=== PATIENT | female | born 1950 | race Caucasian/White ===

== ENCOUNTER 2018-07-19 06:58 | Inpatient (IN) | payer MEDICARE ==
--- NOTE | 2018-07-06 16:24 | HP ---
AMENDED REPORT NOW INCLUDES DESIGNATED COSIGNER HISTORY AND PHYSICAL: DATE OF ADMISSION/SURGERY: 07/19/18 DATE OF OFFICE VISIT: 07/06/18 SURGEON: Leny Pressley MD * (DICTATED BY JAIDA GAONA) PROCEDURE: Left total hip arthroplasty. CHIEF COMPLAINT: Left hip pain. HISTORY OF PRESENT ILLNESS: Ms. Carlson is a 68-year-old female with end-stage osteoarthritis of the left hip. She has failed conservative treatment and elected to proceed with a left total hip arthroplasty, which is scheduled for . PAST MEDICAL HISTORY: Chronic fatigue syndrome. PAST SURGICAL HISTORY: Left knee ACL reconstruction. CURRENT MEDICATIONS: Aleve as needed. ALLERGIES: None. FAMILY HISTORY: Lung cancer, coronary artery disease, and liver disease. SOCIAL HISTORY: She is a 68-year-old female. She lives with her friend. She does not smoke or use drugs. She uses occasional alcohol. REVIEW OF SYSTEMS: A complete 14-point review of systems was reviewed with the patient, was all negative and noncontributory. She denies history of DVT, PE, hepatitis, HIV, or anesthesia problems. PHYSICAL EXAMINATION GENERAL: She is well developed, well nourished, in no acute distress. VITAL SIGNS: She stands 5 feet 3 inches tall, weighs 149 pounds, her blood pressure is 116/76, and heart rate is 64. HEENT: Normocephalic and atraumatic. NECK: Supple. No palpable lymph nodes. PULMONARY: Clear to auscultation bilaterally. CARDIO: Regular rate and rhythm. Strong S1 and S2. ABDOMEN: Soft, nontender, and nondistended. MUSCULOSKELETAL: Left lower extremity, the skin is intact. There are no open wounds or abrasions. She walks with an antalgic-type gait favoring her left hip. She has decreased internal and external rotation of the left hip. She has a 2+ dorsalis pedis pulse, intact sensation to her lower extremity. Muscle group strengths are intact at 5/5. ASSESSMENT AND PLAN: Mrs. Carlson is a 68-year-old female with end-stage osteoarthritis of the left hip. She has failed conservative treatment and elected to proceed with a left total hip arthroplasty, which is scheduled for with Dr. Pressley. Dr. Pressley discussed the risks and the benefits of the surgery at today's visit and all of her questions were answered. She will follow up with Dr. Pressley 2 weeks after the surgery. JAIDA GAONA [id number]/CPS #: [id number] MTDD
[~2018-07-19 06:58] MED LIST: Buffered Lidocaine 0.9% SYRIN* 5 ML/SYR SYRINGE INTRADERM ONE; Famotidine IV* 10 MG/ML 2 ML (20 mg) IV ONE; Gabapentin CAP(*) 300 MG PO ONE
--- OUTSIDE RECORDS SUMMARY | 2018-07-19 07:05 | XMS REPORT ---
:1950 External Reference #:[id number] Author Organization [facility] Address [address] [place] [address] [place] [address] Phone [phone] Care Team Providers Name Role Phone Maulik Helton DO Primary Care Physician Unavailable Payers Type Date Identification Numbers Payment Provider Subscriber Medicare Primary Effective: Policy Number: Medicare Evan Davila 2003 [id number] PayID: [id number] [address] [place] [address] [place] Policy Number: [id number] [facility] Evan Davila PayID: [id number] [address] [place] [address] Problems Date Description Provider Status Onset: 04/02/2009 Chronic fatigue syndrome Matthias Christensen Active Anny,FACP Onset: 06/03/2018 Localized, primary osteoarthritis Leny Pressley M.D. Active of the pelvic region and thigh Family History Date Family Member(s) Problem(s) Comments Father due to Liver Disease () - ? alcohol related Father due to CHF () Mother Osteoporosis Mother Thyroid Disease First Sister Thyroid Disease Paternal Grandmother due to Cancer () Maternal Grandmother due to Cancer, Colon () Social History Type Date Description Comments Marital Status Significant Other Lives With unmarried partner Occupation Disabled General no children Cigarette Use Never Smoked Cigarettes ETOH Use Occasionally consumes wine ETOH Use Occasionally consumes alcohol ETOH Use consumes 3-4 glasses per week Recreational Drug Use Denies Drug Use Smoking Patient has never smoked Exercise Type/Frequency Does not exercise Allergies, Adverse Reactions, Alerts Date Description Reaction Status Severity Comments 04/02/2009 NKDA active 10/17/2013 NKDA active Medications Medication Date Status Form Strength Qnty SIG Indications Ordering Provider Breg Cooling Active 1units use q2 M16.12 Leny Pad For Hip - 018 hours as Anny Pressley Ice Cube Pad needed for left hip pain s/p ltha CBD Salve And Active Unknown Tincture 000 Aleve Active Capsules 220mg 1-2 as Unknown 000 needed Manns Choice-3 Hx Unknown 000 - 018 Antioxidant Hx Unknown 000 - 018 Vital Signs Date Vital Result Comment 07/06/2018 Height 63 inches 5'3" Weight 149.00 lb Heart Rate 64 /min BP Systolic 116 mmHg BP Diastolic 76 mmHg BMI (Body Mass Index) 26.4 kg/m2 06/03/2018 Height 63 inches 5'3" Weight 144.00 lb Heart Rate 72 /min BP Systolic 114 mmHg BP Diastolic 64 mmHg BMI (Body Mass Index) 25.5 kg/m2 10/30/2015 Height 64 inches 5'4" Weight 160.00 lb Heart Rate 60 /min BP Systolic Sitting 114 mmHg BP Diastolic Sitting 62 mmHg Respiratory Rate 16 /min Pain Level 5 BMI (Body Mass Index) 27.5 kg/m2 10/17/2013 Height 64 inches 5'4" Weight 160.00 lb Heart Rate 77 /min BP Systolic 107 mmHg BP Diastolic 72 mmHg BMI (Body Mass Index) 27.5 kg/m2 04/02/2009 Height 65.25 inches 5'5.25" Weight 174.00 lb Heart Rate 68 /min BP Systolic Sitting 116 mmHg BP Diastolic Sitting 82 mmHg BMI (Body Mass Index) 28.7 kg/m2 Results Test Date Test Result H/L Range Note CBC Auto Diff 07/06/2018 White Blood Count 6.3 10^3/uL 3.5-10.8 Red Blood Count 4.36 10^6/uL 4.00-5.40 Hemoglobin 14.1 g/dL 12.0-16.0 Hematocrit 41 % 35-47 Mean Corpuscular Volume 95 fL 80-97 Mean Corpuscular Hemoglobin 32 pg High 27-31 Mean Corpuscular HGB Conc 34 g/dL 31-36 Red Cell Distribution Width 14 % 10.5-15 Platelet Count 236 10^3/uL 150-450 Mean Platelet Volume 8.2 um3 7.4-10.4 Abs Neutrophils 2.8 10^3/uL 1.5-7.7 Abs Lymphocytes 2.5 10^3/uL 1.0-4.8 Abs Monocytes 0.5 10^3/uL 0-0.8 Abs Eosinophils 0.4 10^3/uL 0-0.6 Abs Basophils 0.1 10^3/uL 0-0.2 Abs Nucleated RBC 0 10^3/uL Granulocyte % 44.9 % 38-83 Lymphocyte % 39.7 % 25-47 Monocyte % 8.3 % High 0-7 Eosinophil % 5.8 % 0-6 Basophil % 1.3 % 0-2 Nucleated Red Blood Cells % 0.1 Urinalysis Profile 07/06/2018 Urine Color Yellow Urine Appearance Clear Urine Specific Henderson 1.011 1.010-1.030 Urine pH 5.0 5-9 Urine Urobilinogen Negative Negative Urine Ketones Negative Negative Urine Protein Negative Negative Urine Leukocytes Negative Negative Urine Blood 1+ Negative Urine Nitrite Negative Negative Urine Bilirubin Negative Negative Urine Glucose Negative Negative Urine White Blood Cell Absent Absent Urine Red Blood Cell Trace(0-2/hpf) Absent Urine Bacteria Absent Absent Urine Squamous Epithelial Cell Present Absent Inr/Protime 07/06/2018 Inr 0.89 0.77-1.02 Laboratory test finding 07/06/2018 Partial Thrombo Time 30.4 seconds 26.0 -36.3 PTT Comp Metabolic Panel 07/06/2018 Sodium 138 mmol/L 135-145 Potassium 4.1 mmol/L 3.5-5.0 Chloride 103 mmol/L 101-111 Co2 Carbon Dioxide 29 mmol/L 22-32 Anion Gap 6 mmol/L 2-11 Glucose 94 mg/dL 70-100 Blood Urea Nitrogen 15 mg/dL 6-24 Creatinine 0.90 mg/dL 0.51-0.95 BUN/Creatinine Ratio 16.7 8-20 Calcium 9.6 mg/dL 8.6-10.3 Total Protein 7.3 g/dL 6.4-8.9 Albumin 4.3 g/dL 3.2-5.2 Globulin 3.0 g/dL 2-4 Albumin/Globulin Ratio 1.4 1-3 Total Bilirubin 0.50 mg/dL 0.2-1.0 Alkaline Phosphatase 90 U/L 34-104 Alt 25 U/L 7-52 Ast 25 U/L 13-39 Egfr Non- 62.3 >60 Egfr 75.3 >60 1 Type & Screen 07/06/2018 Patient Blood Type A Positive Antibody Screen NEGATIVE Urine Culture And 07/06/2018 Urine Culture SEE RESULT BELOW 2 Sensitivities Laboratory test finding 12/13/2017 Non-Internet Developer Interface SEE RESULT BELOW 3 Order Comp Metabolic Panel 10/25/2017 Sodium 140 mmol/L 133-145 Potassium 4.2 mmol/L 3.5-5.0 Chloride 105 mmol/L 101-111 Co2 Carbon Dioxide 28 mmol/L 22-32 Anion Gap 7 mmol/L 2-11 Glucose 104 mg/dL High 70-100 Blood Urea Nitrogen 13 mg/dL 6-24 Creatinine 0.87 mg/dL 0.51-0.95 BUN/Creatinine Ratio 14.9 8-20 Calcium 9.8 mg/dL 8.6-10.3 Total Protein 7.0 g/dL 6.4-8.9 Albumin 4.3 g/dL 3.2-5.2 Globulin 2.7 g/dL 2-4 Albumin/Globulin Ratio 1.6 1-3 Total Bilirubin 0.50 mg/dL 0.2-1.0 Alkaline Phosphatase 68 U/L 34-104 Alt 17 U/L 7-52 Ast 21 U/L 13-39 Egfr Non- 64.9 >60 Egfr 83.5 >60 4 CBC With Electronic Diff 04/09/2009 White Blood Count 5.5 CUMM 4.8-10.8 5 Red Cell Count 4.41 CUMM 4.2-5.4 5 Hemoglobin 14.3 g/dL 12.0-16.0 5 Hematocrit 42 % 35-47 5 Mean Corpuscular Volume 94 um3 79-97 5 Mean Corpuscular Hemoglob 32 pg High 27-31 5 Mean Corpuscular HGB Cone 34 g/dL 32-36 5 Redcell Distribution WDTH 14 % 10.5-15 5 Platelet Count 217 CUMM 150-450 5 Mean Platelet Volume 8.6 um3 7.4-10.4 5 Gran % 43.8 % 38-83 5 Lymph % 43.3 % 25-47 5 Mononuclear % 8.0 % 1-9 5 Eosinophil % 4.4 % 0-6 5 Basophil % 0.5 % 0-2 5 Abs Lymphs 2.4 1.0-4.8 5 Abs Mononuclear 0.4 0-0.8 5 Absolute Neutrophil Count 2.4 1.5-7.7 5 Abs Eosinophils 0.2 0-0.6 5 Abs Basophils 0 0-0.2 5 Comp Metabolic Panel 04/09/2009 Sodium 133 mmol/L Low 135-145 5 Potassium 4.4 mmol/L 3.5-5.0 5 Chloride 101 mmol/L 101-111 5 Co2 (Carbon Dioxide) 25.0 mmol/L 22-32 5 Anion Gap 7.0 mmol/L 2-11 5, 6 Glucose 78 mg/dL 70-100 5, 7 BUN 15 mg/dL 6-24 5 Creatinine 0.90 mg/dL 0.50-1.40 5 One Over Creatinine 1.10 5 BUN/Creatinine Ratio 16.7 8-20 5 Calcium 9.4 mg/dL 8.1-9.9 5, 8 Total Protein 7.0 GM/DL 6.2-8.1 5 Albumin 3.9 GM/DL 3.6-5.4 5 Globulin 3.1 GM/DL 2-4 5 Albumin/Globulin Ratio 1.3 1-3 5 Bilirubin Total 0.8 mg/dL 0.4-1.5 5, 9 Alkaline Phosphatase 73 U/L 30-110 5 Alt (SGPT) 30 U/L 14-54 5 Ast (Sgot) 28 U/L 12-42 5 eGFR Non- 68.1 > 60 5 eGFR 82.4 > 60 5, 10 Lipid Profile (Trig/Chol/HDL) 04/09/2009 Triglyceride 121 mg/dL 40-200 5 Cholesterol 256 mg/dL High Less Than 200 5, 11 High Density Lipoprotein 61 mg/dL High 40-60 5, 12 Cholesterol/HDL Ratio 4.20 AVERAGE 1-4.44 5 Low Density Lipoprotein 171 mg/dL High Less Than 100 5, 13 Laboratory test finding 04/09/2009 TSH 3.04 MIU/ML 0.34-5.60 5 Thyroxine Free 0.84 NG/ML 0.61-1.24 5, 14 1 Because ethnic data is not always readily available, this report includes an eGFR for both -Americans and non- Americans. The National Kidney Disease Education Program (NKDEP) does not endorse the use of the MDRD equation for patients that are not between the ages of 18 and 70, are , have extremes of body size, muscle mass, or nutritional status, or are non- or non-. According to the National Kidney Foundation, irrespective of diagnosis, the stage of the disease is based on the level of kidney function: Stage Description GFR(mL/min/1.73 m(2)) 1 Kidney damage with normal or decreased GFR 90 2 Kidney damage with mild decrease in GFR 60-89 3 Moderate decrease in GFR 30-59 4 Severe decrease in GFR 15-29 5 Kidney failure <15 (or dialysis) 2 SEE RESULT BELOW Name: EVAN DAVILA : [address]: Leny Pressley MD Acct: [id number] Unit: [id number] AGE: 68 Location: [facility] Re07/06/18 SEX: F Status: REG REF SPEC: [id number] [place]: 07/06/[address] [facility] [address]: Leny Pressley MD REQ: [id number] RECD: 07/06/183377 STATUS: COMP _ SOURCE: URINE SPDESC: ORDERED: Urine Culture QUERIES: Urine Source: Clean Catch Procedure Result Reported Site Urine Culture Final 07/07/18- 1334 ML No Growth (<1,000 CFU/mL) * ML - Main Lab . END OF REPORT DEPARTMENT OF PATHOLOGY, [address] [place] [address] Ryland Estevez M.D. Director [facility] # [id number] 3 SEE RESULT BELOW Name: EVAN DAVILA : [address]: Adair Fuentes MD Acct: [id number] Unit: [id number] AGE: 67 Location: LAB Re12/13/17 SEX: F Status: REG REF SPEC: [id number] [place]: 12/13/17-[address] [facility] [address]: Adair Fuentes MD REQ: [id number] RECD: 12/13/17 STATUS: RICHARD PURDY DR: Ryland Helton DO _ ORDERED: FNA INTERP RPT, FNA BY PALP, LEVEL 4, CYTO ADEQ-1ST P THIS IS A CORRECTED REPORT 12/14/17-1325 Corrected Report FINAL DIAGNOSIS Thigh, left posterior mass, fine needle aspiration by palpation: -- Benign- Mature adipose tissue with intimately associated muscle compatible with intramuscular lipoma. See comment. The aspirate smears and formalin fixed cell block demonstrate ample fragments of benign mature adipose tissue with associated benign skeletal muscle fragments. No abnormal vascular elements, cytologic atypia, lipoblasts, mitotic activity or necrosis are seen. 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 These findings are compatible with the clinical exam. Despite aggressive attempts to acquire adequate material for MDM 2 amplification by FISH, due to low nuclear density in this lesion as well as specimen requirements this test could not be completed. Management of this lesion should be based on clinical and imaging findings. The procedure was explained to and understood by the patient. Signed consent was obtained and a time out procedure was CONTINUED ON NEXT PAGE DEPARTMENT OF PATHOLOGY, [address] [place] [address] Ryland Estevez M.D. Director [facility] # [id number] RUN DATE: 12/22/17 [facility] LAB LIVE PAGE 2 Patient: EVAN DAVILA [id number] (Continued) SPECIMEN COMMENTS (Continued) performed at the bedside to verify patient identity and biopsy site. Fine needle aspiration biopsy was performed times 2 with a 23 gauge needle on approximately 8 cm left posterior thigh intramuscular mass. Adequacy was assessed by fast stain technique. The procedure was tolerated well without complications. A cell block was prepared in the evaluation of this specimen. Smears and cell block reveal similar findings. A. THIGH LEFT - LEFT POSERIOR THY MASS FINE NEEDLE ASPIRATION BY PALPATION CLINICAL HISTORY 8 cm left posterior thigh, intra-muscular soft mass. IMMEDIATE INTERPRETATION Pass 1,and 2-adequate GROSS DESCRIPTION Fine needle aspiration by palpation x 2 passes with 1 Alcohol fixed slide(s) , and needle rinse in formalin for cell block. SPECIAL STUDIES MDM2 FISH has been performed at [facility], [place], [place]. The testing reveals: Test Result Flag Unit RefValue MDM2 (12q15) Amp, FISH, Ts Interpretation See Comment FISH studies were not possible because of an insufficient amount of tissue present. If possible, please provide another specimen. 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 Director [facility] # [id number] RUN DATE: 12/22/17 [facility] LAB LIVE PAGE 3 Patient: EVAN DAVILA [id number] (Continued) SPECIAL STUDIES (Continued) SPECIAL STUDIES (Continued) Tissue ID [id number] Released By See Comment RESULT: Bill Story M.D. Test Performed by: [address] [address] Signed (signature on file) Ryland Estevez MD 1542 END OF REPORT DEPARTMENT OF PATHOLOGY, [address] [place] [address] Ryland Estevez M.D. Director [facility] # [id number] 4 Because ethnic data is not always readily available, this report includes an eGFR for both -Americans and non- Americans. The National Kidney Disease Education Program (NKDEP) does not endorse the use of the MDRD equation for patients that are not between the ages of 18 and 70, are , have extremes of body size, muscle mass, or nutritional status, or are non- or non-. According to the National Kidney Foundation, irrespective of diagnosis, the stage of the disease is based on the level of kidney function: Stage Description GFR(mL/min/1.73 m(2)) 1 Kidney damage with normal or decreased GFR 90 2 Kidney damage with mild decrease in GFR 60-89 3 Moderate decrease in GFR 30-59 4 Severe decrease in GFR 15-29 5 Kidney failure <15 (or dialysis) 5 FASTING PATIENT MAY HAVE RESULTS PER DOCTOR'S AUTHORIZATION. Questions regarding this report should be directed to your doctor. 6 Anion gap measurement may be of limited value in the presence of any alkalosis, especially in a combined acid base disorder. . 7 Note change in reference range as of 05/03/08. The change was based on recommendations from the [place] [employer]. 8 Please note change in reference range effective 08 . 9 A metabolite of Naproxen, O-desmethylnaproxen, has been shown to interfere with the [place] method for measuring total bilirubin. Samples from patients who have taken Naproxen have shown spurious elevation in total bilirubin levels. 10 Because ethnic data is not always readily available, this report includes an eGFR for both -Americans and non- Americans. The National Kidney Disease Education Program (NKDEP) does not endorse the use of the MDRD equation for patients that are not between the ages of 18 and 70, are , have extremes of body size, muscle mass, or nutritional status, or are non- or non-. According to the National Kidney Foundation, irrespective of diagnosis, the stage of the disease is based on the level of kidney function: Stage Description GFR(mL/min/1.73 m(2)) 1 Kidney damage with normal or decreased GFR 90 2 Kidney damage with mild decrease in GFR 60-89 3 Moderate decrease in GFR 30-59 4 Severe decrease in GFR 15-29 5 Kidney failure <15 (or dialysis) 11 CHOLESTEROL INTERPRETATION: Desirable: Less than 200 MG/DL Borderline-High Risk: 200-239 MG/DL High-Risk: 240 MG/DL and over 12 HDL INTERPRETATION: Undesirable: High Risk: Less than 40 MG/DL Desirable: Low Risk: Greater than 60 MG/DL 13 LDL INTERPRETATION: Low Risk Optimal Level: LDL Less than 100 MG/DL Near or Above Optimal: LDL 100-129 MG/DL Borderline High Risk: LDL 130-159 MG/DL High Risk: LDL 160-189 MG/DL Very High Risk: LDL Greater than 189 MG/DL 14 PLEASE NOTE NEW REFERENCE RANGES. Procedures Description No Information Encounters Type Date Location Provider CPT E/M Dx Office Visit 06/03/2018 [facility] Pressley M.D. 47230 M16.12 1:00p [facility]AA[facility]rienne M25.552 Office Visit 10/30/2015 10:30a [facility] Raul Renee M.D. 21403 M16.12 [facility] Office Visit 10/17/2013 1:30p [facility] David Cosme [address]32[address] 715.15 Of C.M.ADanilo Ybarra Office Visit 04/02/2009 9:20a DO Not Use Marketing Liaison AT [facility], [address] 780.71 Hoosicktessa Mccormick,FAC 780.79 V76.51 V76.10 Plan of Care Future Appointment(s):07/19/2018 9:30 am - JOAQUIM Parekh at [facility]07/19/2018 9:30 am - Junior Luevano PA-C at [facility]07/29/2018 10:30 am - Leny Pressley M.D. at [facility]07/19/2018 9:30 am - Leny Pressley M.D. at [facility]07/06/2018 - Leny Pressley M.D.M16.12 Unilateral primary osteoarthritis, left hipNew Medication:Breg Cooling Pad For Hip - Ice Cube PadFollow up:Follow up: 10-14 days vsgumzT78.552 Pain in left hip
--- OUTSIDE RECORDS SUMMARY | 2018-07-19 07:05 | XMS REPORT ---
:1950 External Reference #:[id number] Author Organization [employer] Address [address] [facility] [address] [place] [address] Phone [phone] Care Team Providers Name Role Phone Maulik Helton DO Primary Care Physician Unavailable Payers Type Date Identification Numbers Payment Provider Subscriber Medicare Primary Effective: Policy Number: Medicare Evan Davila 2003 [id number] PayID: [id number] [address] [place] [address] [employer] Part B Policy Number: [id number] [facility] Evan Davila PayID: [id number] [address] [place] [address] Problems Date Description Provider Status Onset: 04/02/2009 [...] Capsules 220mg 1-2 as Unknown 000 needed [place]-3 Hx Unknown 000 - 018 Antioxidant Hx [...] Test Date Test Result H/L Range Note Laboratory test 12/13/2017 Non-Structural Test Engineer Interface SEE RESULT BELOW 1 finding Order Comp Metabolic Panel 10/25/2017 Sodium 140 [...] Egfr Non- 64.9 >60 Egfr 83.5 >60 2 CBC With Electronic Diff 04/09/2009 White Blood Count 5.5 CUMM 4.8-10.8 3 Red Cell Count 4.41 CUMM 4.2-5.4 3 Hemoglobin 14.3 g/dL 12.0-16.0 3 Hematocrit 42 % 35-47 3 Mean Corpuscular Volume 94 um3 79-97 3 Mean Corpuscular Hemoglob 32 pg High 27-31 3 Mean Corpuscular HGB Cone 34 g/dL 32-36 3 Redcell Distribution WDTH 14 % 10.5-15 3 Platelet Count 217 CUMM 150-450 3 Mean Platelet Volume 8.6 um3 7.4-10.4 3 Gran % 43.8 % 38-83 3 Lymph % 43.3 % 25-47 3 Mononuclear % 8.0 % 1-9 3 Eosinophil % 4.4 % 0-6 3 Basophil % 0.5 % 0-2 3 Abs Lymphs 2.4 1.0-4.8 3 Abs Mononuclear 0.4 0-0.8 3 Absolute Neutrophil Count 2.4 1.5-7.7 3 Abs Eosinophils 0.2 0-0.6 3 Abs Basophils 0 0-0.2 3 Comp Metabolic Panel 04/09/2009 Sodium 133 mmol/L Low 135-145 3 Potassium 4.4 mmol/L 3.5-5.0 3 Chloride 101 mmol/L 101-111 3 Co2 (Carbon Dioxide) 25.0 mmol/L 22-32 3 Anion Gap 7.0 mmol/L 2-11 3, 4 Glucose 78 mg/dL 70-100 3, 5 BUN 15 mg/dL 6-24 3 Creatinine 0.90 mg/dL 0.50-1.40 3 One Over Creatinine 1.10 3 BUN/Creatinine Ratio 16.7 8-20 3 Calcium 9.4 mg/dL 8.1-9.9 3, 6 Total Protein 7.0 GM/DL 6.2-8.1 3 Albumin 3.9 GM/DL 3.6-5.4 3 Globulin 3.1 GM/DL 2-4 3 Albumin/Globulin Ratio 1.3 1-3 3 Bilirubin Total 0.8 mg/dL 0.4-1.5 3, 7 Alkaline Phosphatase 73 U/L 30-110 3 Alt (SGPT) 30 U/L 14-54 3 Ast (Sgot) 28 U/L 12-42 3 eGFR Non- 68.1 > 60 3 eGFR 82.4 > 60 3, 8 Lipid Profile (Trig/Chol/HDL) 04/09/2009 Triglyceride 121 mg/dL 40-200 3 Cholesterol 256 mg/dL High Less Than 200 3, 9 High Density Lipoprotein 61 mg/dL High 40-60 3, 10 Cholesterol/HDL Ratio 4.20 AVERAGE 1-4.44 3 Low Density Lipoprotein 171 mg/dL High Less Than 100 3, 11 Laboratory test finding 04/09/2009 TSH 3.04 MIU/ML 0.34-5.60 3 Thyroxine Free 0.84 NG/ML 0.61-1.24 3, 12 1 SEE RESULT BELOW Name: EVAN DAVILA : [address]: Adair Fuentes MD Acct: [id number] Unit: [id number] AGE: 67 Location: LAB Re12/13/17 SEX: F Status: REG REF SPEC: [id number] AUGUSTO: 12/13/17-0 [facility] DR: Adair Fuentes MD REQ: [id number] RECD: 12/13/17 STATUS: RICHARD PURDY DR: Ryland Helton DO _ ORDERED: FNA INTERP RPT, FNA BY PALP, LEVEL 4, CYTO ADEQ-1ST P THIS IS A CORRECTED REPORT 12/14/17 Corrected Report FINAL DIAGNOSIS Thigh, left posterior [...] CONTINUED ON NEXT PAGE DEPARTMENT OF PATHOLOGY, [address] [place] [address] Ryland Estevez M.D. Director [facility] # [id number] RUN DATE: 12/22/17 [facility] LAB LIVE PAGE 2 Patient: EVAN DAVILA [id number] (Continued) SPECIMEN COMMENTS (Continued) performed at the [...] STUDIES MDM2 FISH has been performed at [facility], [place], [place]. The testing reveals: Test Result Flag Unit RefValue MDM2 (12q15) Amp, FISH, Ts Interpretation See Comment FISH studies were not possible because of an insufficient amount of tissue present. If possible, please provide another specimen. 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 Director [facility] # [id number] RUN DATE: 12/22/17 [facility] LAB LIVE PAGE 3 Patient: EVAN DAVILA [id number] (Continued) SPECIAL STUDIES (Continued) SPECIAL STUDIES (Continued) Tissue ID [id number] Released By See Comment RESULT: Bill Story M.D. Test Performed by: [address] [address] Signed (signature on file) Ryland Estevez MD 1542 END OF REPORT DEPARTMENT OF PATHOLOGY, [address] [place] [address] Ryland Estevez M.D. Director [facility] # [id number] 2 Because ethnic data is not always readily [...] 15-29 5 Kidney failure <15 (or dialysis) 3 FASTING PATIENT MAY HAVE RESULTS PER DOCTOR'S AUTHORIZATION. Questions regarding this report should be directed to your doctor. 4 Anion gap measurement may be of limited value in the presence of any alkalosis, especially in a combined acid base disorder. . 5 Note change in reference range as of 05/03/08. The change was based on recommendations from the [place] Diabetes [employer]. 6 Please note change in reference range effective 08 . 7 A metabolite of Naproxen, O-desmethylnaproxen, has been shown to interfere with the Jendrassik-Deal method for measuring total bilirubin. Samples from patients who have taken Naproxen have shown spurious elevation in total bilirubin levels. 8 Because ethnic data is not always readily [...] 15-29 5 Kidney failure <15 (or dialysis) 9 CHOLESTEROL INTERPRETATION: Desirable: Less than 200 MG/DL Borderline-High Risk: 200-239 MG/DL High-Risk: 240 MG/DL and over 10 HDL INTERPRETATION: Undesirable: High Risk: Less than 40 MG/DL Desirable: Low Risk: Greater than 60 MG/DL 11 LDL INTERPRETATION: Low Risk Optimal Level: LDL Less than 100 MG/DL Near or Above Optimal: LDL 100-129 MG/DL Borderline High Risk: LDL 130-159 MG/DL High Risk: LDL 160-189 MG/DL Very High Risk: LDL Greater than 189 MG/DL 12 PLEASE NOTE NEW REFERENCE RANGES. Procedures Description No Information Encounters Type Date Location Provider CPT E/M Dx Office Visit 06/03/2018 [facility] M.D. 85042 M16.12 1:00p Raymundo M25.552 Office Visit 10/30/2015 10:30a [facility] Raul Renee M.D. 02622 M16.12 Of C.M.Sydni Office Visit 10/17/2013 1:30p [facility] David Cosme 43500 715.15 Of C.M.ADanilo Ybarra Office Visit 04/02/2009 9:20a DO Not Use [facility] [address] 780.71 Radha Mccormick,[facility] 780.79 V76.51 V76.10 Plan of Care Future Appointment(s):07/29/2018 10:30 am - Leny Preslsey M.D. at [facility]07/19/2018 11:30 am - Leny Pressley M.D. at [facility]07/06/2018 - Leny Pressley M.D.M16.12 Unilateral primary osteoarthritis, left hipNew Medication:Breg Cooling Pad For Hip - Ice Cube PadFollow up:Follow up: 10-14 days ttwijmU70.552 Pain in left hip
--- OUTSIDE RECORDS SUMMARY | 2018-07-19 07:05 | XMS REPORT ---
:1950 External Reference #:[id number] Author Organization [employer] Address [address] [place] [address] [place] [address] Phone [phone] Care Team Providers Name Role Phone Maulik Helton DO Primary Care Physician Unavailable Payers Type Date Identification Numbers Payment Provider Subscriber Medicare Primary Effective: Policy Number: Medicare Evan Davila 2003 [id number] PayID: [id number] [address] [place] [address] [employer] Part B Policy Number: [id number] [facility] Evan Davila PayID: [id number] [address] [place] [address] Problems Date Description Provider Status Onset: 04/02/2009 [...] Capsules 220mg 1-2 as Unknown 000 needed [place]-3 Hx Unknown 000 - 018 Antioxidant Hx [...] Color Yellow Urine Appearance Clear Urine Specific [place] 1.011 1.010-1.030 Urine pH 5.0 5-9 Urine [...] BELOW 2 Sensitivities Laboratory test finding 12/13/2017 Non-Esthetician Makeup Artist Interface SEE RESULT BELOW 3 Order Comp [...] [address]: Leny Pressley MD Acct: [id number] Unit: [id number] AGE: 68 Location: [facility] Re07/06/18 SEX: F Status: REG REF SPEC: [id number] AUGUSTO: 07/06/[address] [facility] [address]: Leny Pressley MD REQ: [id number] RECD: 07/06/188809 STATUS: COMP _ SOURCE: URINE SPDESC: ORDERED: Urine Culture QUERIES: Urine Source: Clean Catch Procedure Result Reported Site Urine Culture Final 07/07/18- 1334 ML No Growth (<1,000 CFU/mL) * ML - Main Lab . END OF REPORT DEPARTMENT OF PATHOLOGY, [address] [place] [address] Ryland Estevez M.D. Director [facility] # [id number] 3 SEE RESULT BELOW Name: EVAN DAVILA : [address]: Adair Fuentes MD Acct: [id number] Unit: [id number] AGE: 67 Location: LAB Re12/13/17 SEX: F Status: REG REF SPEC: [id number] AUGUSTO: 12/13/17-1510 [facility] [address]: Adair Fuentes MD REQ: [id number] RECD: 12/13/17 STATUS: RICHARD PURDY DR: Ryland [...] CONTINUED ON NEXT PAGE DEPARTMENT OF PATHOLOGY, [address] [place] [address] Ryland Estevez M.D. Director [facility] # [id number] RUN DATE: 12/22/17 [facility] LAB LIVE PAGE 2 Patient: EVAN DAVILA [id number] (Continued) SPECIMEN COMMENTS (Continued) performed at the [...] STUDIES MDM2 FISH has been performed at [facility], [place], [place]. The testing reveals: Test Result Flag Unit RefValue MDM2 (12q15) Amp, FISH, Ts Interpretation See Comment FISH studies were not possible because of an insufficient amount of tissue present. If possible, please provide another specimen. 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 Director [facility] # [id number] RUN DATE: 12/22/17 [facility] LAB LIVE PAGE 3 Patient: EVAN DAVILA [id number] (Continued) SPECIAL STUDIES (Continued) SPECIAL STUDIES (Continued) Tissue ID [id number] Released By See Comment RESULT: Bill Story M.D. Test Performed by: [address] [address] Signed (signature on file) Ryland Estevez MD 1542 END OF REPORT DEPARTMENT OF PATHOLOGY, [address] [place] [address] Ryland Estevez M.D. Director [facility] # [id number] 4 Because ethnic data is not always [...] change was based on recommendations from the [place] [employer]. 8 Please note change in reference range effective 08 . 9 A metabolite of Naproxen, O-desmethylnaproxen, has been shown to interfere with the Jendrassik-Statham method for measuring total bilirubin. Samples from [...] 06/03/2018 [facility] M.D. 20267 M16.12 1:00p C.MEmy M25.552 Office Visit 10/30/2015 10:30a [facility] Raul Renee M.D. 38725 M16.12 Of C.M.AAdrienne Office Visit 10/17/2013 1:30p [facility] David Cosme [address] 715.15 Of C.M.ADanilo Ybarra Office Visit 04/02/2009 9:20a DO Not Use Behavioral Health Counselor AT Matthias Christensen, [address] 780.71 Hesperiatessa Mccormick,FAC 780.79 V76.51 V76.10 Plan of Care Future Appointment(s):07/29/2018 10:30 am - Leny Pressley M.D. at [facility]07/19/2018 11:30 am - Leny Pressley M.D. at [facility]07/06/2018 - Leny Pressley M.D.M16.12 Unilateral primary osteoarthritis, left hipNew Medication:Breg Cooling Pad For Hip - Ice Cube PadFollow up:Follow up: 10-14 days wnvgarZ69.552 Pain in left hip
[2018-07-19] MEDS ORDERED: Famotidine IV* 10 MG/ML 2 ML (20 mg) ONE (07:16)
[2018-07-19] MEDS ORDERED: ceFAZolin 2 GM PREMIX in ORs 2 GM/50 ML BAG IVPB ONE (07:16)
[2018-07-19] MEDS ORDERED: Gabapentin CAP(*) 300 MG ONE (07:16)
[2018-07-19] MEDS ORDERED: Midazolam* 1 MG/ML 5 ML VIAL (5 MG) ONE (08:55)
[2018-07-19] MEDS ORDERED: fentaNYL* 50 MCG/ML 2 ML VIAL (100 MCG VIAL) ONE (08:55)
[2018-07-19] MEDS ORDERED: KETAMINE HCL* 50 MG/ML 10 ML VIAL ONE (08:55)
[2018-07-19] MEDS ORDERED: Propofol* 10 MG/ML 20 ML BTL IV PUSH ONE (09:05)
[2018-07-19] MEDS ORDERED: DiMENhydriNATE IV* 50 MG/ML VIAL ONE (09:05)
[2018-07-19] MEDS ORDERED: Ondansetron INJ* 2 MG/ML VIAL ONE (09:05)
[2018-07-19] MEDS ORDERED: Ketorolac INJ* 30 MG/ML 1 ML VIAL ONE (09:05)
[2018-07-19] MEDS ORDERED: Dexamethasone IV* 4 MG/ML 1 ML (4 MG) ONE (09:05)
[2018-07-19] MEDS ORDERED: EPHEDrine (Pressors)* 50 MG/ML VIAL ONE (09:05)
[2018-07-19] MEDS ORDERED: Glycopyrrolate IV* 0.2 MG/ML 1 ML VIAL ONE (09:05)
[2018-07-19] MEDS ORDERED: Bupivacaine 0.5% SDV PF* 30ML VIAL ONE (09:11)
[2018-07-19] MEDS ORDERED: Phenylephrine IV* 40 MCG/ML 10 ML SYRINGE ONE (09:11)
[2018-07-19] MEDS ORDERED: Acetaminophen IV 1GM/100ML * 1,000 MG/100 ML VIAL IVPB ONE (10:52)
[2018-07-19] MEDS ORDERED: Naloxone* 0.4 MG/ML 1 ML VIAL IV PRN (10:52)
[2018-07-19] MEDS ORDERED: HYDROmorphone INJ1* 1 MG/ML SYRINGE IV PRN (10:52)
[2018-07-19] MEDS ORDERED: DiMENhydriNATE IV* 50 MG/ML VIAL IV PUSH PRN (10:52)
[2018-07-19] MEDS ORDERED: Gabapentin CAP(*) 100 MG PO ONE (10:53)
[2018-07-19] MEDS ORDERED: Acetaminophen IV 1GM/100ML * 100 ML ONE (11:56)
[2018-07-19] MEDS ORDERED: Gabapentin CAP(*) 100 MG ONE (11:56)
[2018-07-19] MEDS ORDERED: ROPIVACAINE 5 MG/ML 30 ML BTL (0.5%) ONE (12:00)
[2018-07-19] MEDS ORDERED: Bisacodyl SUPP* 10 MG SUPP PR PRN (12:21)
[2018-07-19] MEDS ORDERED: Magnesium Hydroxide LIQ* 30 ML UDC PO PRN (12:21)
[2018-07-19] MEDS ORDERED: oxyCODONE/Acetamin 5/325 MG* TAB PO PRN (12:21)
[2018-07-19] MEDS ORDERED: oxyCODONE TAB* 5 MG TAB PO PRN (12:21)
[2018-07-19] MEDS ORDERED: diPHENhydraMINE IV* 50 MG/ML 1 ml VIAL (BENADRYL) IV PRN (12:21)
[2018-07-19] MEDS ORDERED: Morphine VIAL* 4 MG/ML VIAL (1 ml vial) IV PRN (12:21)
[2018-07-19] MEDS ORDERED: Lidocaine 2% PF * 5 ML VIAL ONE (15:24)
[2018-07-19] MEDS ORDERED: Bupivacaine-MPF SPINAL* 7.5 MG/ML - 2ML AMP ONE (15:24)
[2018-07-19] MEDS ORDERED: Warfarin TAB(*) 6 MG PO ONE (17:00)
[2018-07-19] MEDS: ceFAZolin 1 GM VIAL(*) 1 GM in NS 0.9% 50 ML* 50 ML IVPB SCH (17:46)
[2018-07-19] MEDS: oxyCODONE/Acetamin 5/325 MG* TAB PO PRN (17:47)
--- NOTE | 2018-07-19 18:08 | PN ---
Progress Note - Progress Note Date of Service: 07/19/18 SOAP: POD 0 LTHA. Pt is doing well. States she has been up with PT. Pain is very well controlled. +df/pf. Soft and non tender calves. NVI.
[2018-07-19] MEDS ORDERED: Acetaminophen TAB* 325 MG PO PRN (20:00)
[2018-07-19] MEDS: Docusate CAP* 100 MG PO SCH (21:14)
[2018-07-19] MEDS: Magnesium Hydroxide LIQ* 30 ML UDC PO SCH (21:15)
[2018-07-20] MEDS: oxyCODONE/Acetamin 5/325 MG* TAB PO PRN ×4 (00:21→16:58)
[2018-07-20] MEDS: ceFAZolin 1 GM VIAL(*) 1 GM in NS 0.9% 50 ML* 50 ML IVPB SCH ×2 (02:03→09:45)
[2018-07-20 04:39] LABS: Hematocrit 33 % (35-47); Hemoglobin 11.4 g/dl (12.0-16.0); Mean Platelet Volume 8.3 fL (7.4-10.4); Platelet Count 173 10^3/ul (150-450)
[2018-07-20 04:45] LABS: INR 0.98 (0.77-1.02)
[2018-07-20 04:57] LABS: EGFR Non-African American 75.7 (>60)
[2018-07-20] MEDS: Vitamin THERAPEUTIC TAB PO SCH (08:27)
[2018-07-20] MEDS: Magnesium Hydroxide LIQ* 30 ML UDC PO SCH ×2 (08:27→21:13)
[2018-07-20] MEDS: Docusate CAP* 100 MG PO SCH ×2 (08:27→21:13)
--- NOTE | 2018-07-20 10:35 | PN ---
Progress Note - Progress Note Date of Service: 07/20/18 SOAP: Subjective: [] Patient was seen and examined OOB in chair. She feels well, has walked the unit with PT and desires DC home tonight. left hip pain is well controlled. Denies CP, SOB, dizziness, nausea. No history of blood clot. Objective: []General: Well appearing, NAD LLE: Left hip dressing CDI, Thigh is soft, DF/PF intact, DP2+, capillary refill less than two seconds distally, sensation intact distally. Calves supple and nontender without erythema, edema or palpable cords Assessment: []POD 1 s/p left total hip Plan: []WBAT PT/OT lovenox, coumadin 8 mg today. If patient does DC to home this afternoon I will transition her to ASA 325 BID Vital Signs Temp 97.7 F 07/20/18 07:35 Pulse 52 07/20/18 07:40 Resp 18 07/20/18 08:27 BP 123/49 07/20/18 07:35 Pulse Ox 100 07/20/18 08:00 Intake & Output 07/19/18 07/20/18 07/20/18 18:59 06:59 18:59 Intake Total 2360 2264 555 Output Total 2850 2750 500 Balance -490 -486 55 Weight 149 lb Intake: IV Fluids 1999 1125 75 ABX - CEFAZOLIN 55 LR 2000 1125 20 IVPB 109 ABX - CEFAZOLIN 109 Oral 360 1030 480 Output: Urine 500 Angel 2850 2750 Other: # Bowel Movements 0 Laboratory Last Values Hgb 11.4 g/dl (12.0-16.0) L 07/20/18 04:31 Hct 33 % (35-47) L 07/20/18 04:31 Plt Count 173 10^3/ul (150-450) 07/20/18 04:31 MPV 8.3 fL (7.4-10.4) 07/20/18 04:31 INR (Anticoag Therapy) 0.98 (0.77-1.02) 07/20/18 04:31 Sodium 138 mmol/L (135-145) 07/20/18 04:31 Potassium 4.1 mmol/L (3.5-5.0) 07/20/18 04:31 Chloride 107 mmol/L (101-111) 07/20/18 04:31 Carbon Dioxide 27 mmol/L (22-32) 07/20/18 04:31 Anion Gap 4 mmol/L (2-11) 07/20/18 04:31 BUN 12 mg/dL (6-24) 07/20/18 04:31 Creatinine 0.76 mg/dL (0.51-0.95) 11 04:31 Est GFR ( Amer) 91.6 (>60) 07/20/18 04:31 Est GFR (Non-Af Amer) 75.7 (>60) 07/20/18 04:31 BUN/Creatinine Ratio 15.8 (8-20) 07/20/18 04:31 Glucose 120 mg/dL (70-100) H 07/20/18 04:31 Calcium 9.0 mg/dL (8.6-10.3) 07/20/18 04:31
[2018-07-20] MEDS: Enoxaparin(*) 40 MG/0.4 ML SYR SUBCUT SCH (12:29)
[2018-07-20] MEDS ORDERED: NS 0.9% 1000 ML* 1,000 ML IV SCH (16:30)
[2018-07-20] MEDS ORDERED: Warfarin TAB(*) 4 MG PO ONE (17:00)
--- NOTE | 2018-07-20 19:17 | OP ---
OPERATIVE REPORT: DATE OF OPERATION: 07/19/18 DATE OF : 50 SURGEON: Leny Pressley MD SCRAP WHEELER: JAIDA Alejandra Lizzieangel did help throughout the procedure with preparation of the leg, wound retraction, manipulat ion of the hip, and wound closure. ANESTHESIOLOGIST: Dr. Shaikh. ANESTHESIA: Spinal. 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 OPERATIVE PROCEDURE: Left total hip arthroplasty with acetabular autograft using femoral head autogr aft. COMPLICATIONS: None. SPECIMENS: Femoral head and acetabular reamings sent to Pathology. ESTIMATED BLOOD LOSS: 200 cc. HARDWARE USED: This is uncemented Orly total hip arthroplasty hardware. For the cup, a Tritanium cluster hole shell 52D, a single 20-mm screw was used. For the liner, a Trident X3, 0-degree polyet hylene insert 32D. For the stem, an Accolade II size 5 with a 132-degree neck. For the head, a Biol ox delta ceramic V40 femoral head 32 -4. BRIEF HISTORY/INDICATIONS: Ms. Carlson is a 68-year-old female with years of increasingly severe left hip pain. She failed conservative treatment with antiinflammatories, pain medication, and physical t herapy. Due to continued pain and decreased quality of life, she elected to undergo left total hip a rthroplasty. Radiographs showed severe end-stage arthritis with [id number] contact due to subchondr al cyst formation. Due to continued pain and decreased quality of life, she elected to undergo left total hip arthroplasty. Informed consent was obtained from the patient. She understood the risks of the surgery included, but were not limited to, bleeding, infection, damage to nearby structures, con tinued pain, need for further surgery, intraoperative fracture, nerve palsy, hardware failure or loos ening, dislocation, leg length discrepancy, stroke, heart attack, blood clot, and . She wished to proceed. INTRAOPERATIVE FINDINGS: Intraoperatively, the patient was noted to have severe end-stage arthritis. She had a dysplastic shallow acetabulum. She has significant subchondral cyst formation with bone loss in the acetabulum. This was autografted using femoral head autograft. She was noted to have si gnificant osteopenia throughout the case. DESCRIPTION OF PROCEDURE: Ms. Carlson was identified in the preanesthesia unit. Her left lower extrem ity was marked as the correct operative side. Informed consent was signed and placed in the chart. The patient was taken to the operating room and placed under spinal anesthesia. A Angel catheter was placed. The patient was placed in the right lateral decubitus position on the pegboard. All bony p rominences were well padded. Left lower extremity was prepped and draped in the usual sterile fashio n. Preop time-out was made to correctly identify the patient's side and site. Appropriate periopera tive antibiotics were given within 1 hour of incision. A 12-cm posterior hip incision was made with a 10 blade and carried down to the lateral fascial layer . Lateral fascial layer was incised in line with the skin incision. The Charnley retractor was plac ed. The piriformis and conjoint tendons were identified and elevated off the posterolateral femur us ing electrocautery. Next, electrocautery was used to make a standard posterolateral capsular flap and this was also tagged with #5 Ethibond. The hip was carefully dislocated. Lesser troch to the cente r of the femoral head measured 52 mm. Oscillating saw was used to make the appropriate femoral neck cut and the femoral head was carefully removed. After appropriate placement of retractors, the acetabulum was easily visualized. Long-handled knife w as used to sharply remove any labrum from the acetabular rim. The acetabulum was sequentially reamed up to a size 51. 51 reamer had good fit and had established a bleeding subchondral bone bed. 51 tri al had excellent fit and stability. Final implant chosen was a Tritanium 52D cluster hole shell. Fi rst, attention was turned to the subchondral cysts noted. The cysts were cleared of any cystic debri s. Femoral head autograft was used to bone graft these areas in the acetabulum. These were in the w eightbearing dome. The Tritanium cup was then impacted into the acetabulum without difficulty. Ther e was excellent stability with appropriate anteversion and abduction angle. A single 20-mm screw was placed in the superior posterior quadrant for extra stability. A 0 degree Trident X3 polyethylene insert 32D was chosen as the final insert. This was impacted into the acetabulum. Stability of the insert was checked and rechecked and noted to be stable. Any oste ophytes were carefully removed with a rongeur from the acetabular rim. Next, attention was turned to preparation of the femoral canal. A canal finder was used to enter the proximal femur. The femur was sequentially broached up to a size 5. Size 5 had excellent fit and appropriate anteversion. A 132-neck trial with a 32 -4 head trial w as chosen. Lesser troch to the center of the femoral head measured 53 mm. The hip was reduced and t aken through a range of motion. The hip was stable in all positions. There was good soft tissue ten otf and appropriate leg lengths. The hip was carefully dislocated. All trials were removed. Final implant chosen was an Accolade II size 5 with a 132-degree neck. This was impacted into the femoral canal without difficulty. The giovanny m was stable with appropriate anteversion. A 32 -4 Biolox ceramic V40 femoral head was chosen. This was impacted on to the femoral neck. Lesser troch to the center of the femoral head measured 52 mm. The hip was reduced and taken through range of motion. The hip was stable in all positions. There was soft tissue tension and appropriate leg lengths. The hip was copiously irrigated with sterile s stephy. Previously tagged tendons were reapproximated to the posterolateral femur through 2 trochante aman drill holes. The lateral fascial layer was closed using interrupted #1 Vicryls. The rest of the incision was closed using 0 and 2-0 Vicryls. The skin was closed using running 3-0 Monocryl suture a nd Dermabond. Sterile Adaptic, 4x4s, and paper tape were used to cover the incision. The patient's anesthesia was reversed without difficulty. She was taken to the PACU in stable condit ion. Intended weightbearing will be weightbearing as tolerated. Intended DVT prophylaxis will be Co umadin with a Lovenox bridge. [id number]/[facility] #: [id number]
[2018-07-21] MEDS: oxyCODONE/Acetamin 5/325 MG* TAB PO PRN ×3 (01:26→10:16)
[2018-07-21 06:00] LABS: Hematocrit 34 % (35-47); Hemoglobin 11.7 g/dl (12.0-16.0); Mean Platelet Volume 8.7 fL (7.4-10.4); Platelet Count 180 10^3/ul (150-450)
[2018-07-21 06:06] LABS: INR 1.21 (0.77-1.02)
[2018-07-21] MEDS: Magnesium Hydroxide LIQ* 30 ML UDC PO SCH (08:30)
[2018-07-21] MEDS: Docusate CAP* 100 MG PO SCH (08:30)
[2018-07-21] MEDS: Vitamin THERAPEUTIC TAB PO SCH (08:30)
--- NOTE | 2018-07-21 10:19 | PN ---
Progress Note - Progress Note Date of Service: 07/21/18 SOAP: Subjective: []Patient seen and examined at bedside. She feels very well today and desires DC to home. Denies CP, SOB, dizziness, nausea. Request NS IV last night for history of chronic fatigue syndrome and diffuse widespread pain, she feels much better after 1L infusion. Goals met with PT. Objective: []General: Well appearing, NAD LLE: Left hip dressing changed by Dr Pressley this morning, dressing CDI, Thigh is soft, DF/PF intact, DP2+, capillary refill less than two seconds distally, sensation intact distally. Calves supple and nontender without erythema, edema or palpable cords Assessment: []POD 2 s/p left total hip Plan: []WBAT PT/OT lovenox, coumadin 8 mg today. DC to home today Vital Signs Temp 98.2 F 07/21/18 07:48 Pulse 71 07/21/18 07:33 Resp 18 07/21/18 10:16 BP 129/60 07/21/18 07:33 Pulse Ox 98 07/21/18 08:00 Intake & Output 07/20/18 07/21/18 07/21/18 18:59 06:59 18:59 Intake Total 1245 1340 743 Output Total 1125 950 Balance 120 390 743 Intake: IV Fluids 75 980 263 ABX - CEFAZOLIN 55 LR 20 NS (0.9%) 980 263 Oral 1170 360 480 Output: Urine 1125 950 Other: Estimated Void Medium # Voids 1 Laboratory Last Values Hgb 11.7 g/dl (12.0-16.0) L 07/21/18 05:26 Hct 34 % (35-47) L 07/21/18 05:26 Plt Count 180 10^3/ul (150-450) 07/21/18 05:26 MPV 8.7 fL (7.4-10.4) 07/21/18 05:26 INR (Anticoag Therapy) 1.21 (0.77-1.02) H 07/21/18 05:26 Sodium 138 mmol/L (135-145) 07/20/18 04:31 Potassium 4.1 mmol/L (3.5-5.0) 07/20/18 04:31 Chloride 107 mmol/L (101-111) 07/20/18 04:31 Carbon Dioxide 27 mmol/L (22-32) 07/20/18 04:31 Anion Gap 4 mmol/L (2-11) 07/20/18 04:31 BUN 12 mg/dL (6-24) 07/20/18 04:31 Creatinine 0.76 mg/dL (0.51-0.95) 07/20/18 04:31 Est GFR ( Amer) 91.6 (>60) 07/20/18 04:31 Est GFR (Non-Af Amer) 75.7 (>60) 07/20/18 04:31 BUN/Creatinine Ratio 15.8 (8-20) 07/20/18 04:31 Glucose 120 mg/dL (70-100) H 07/20/18 04:31 Calcium 9.0 mg/dL (8.6-10.3) 07/20/18 04:31
[2018-07-21] MEDS: Enoxaparin(*) 40 MG/0.4 ML SYR SUBCUT SCH (10:56)
[2018-07-21 11:56] VITALS: BP 108/60
--- NOTE | 2018-07-22 07:26 | DS ---
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 OPERATIVE PROCEDURE: Left total hip arthroplasty with acetabular autograft using femoral head autograft. HISTORY: Ms. Carlson is a 68-year-old female with years of increasingly severe left hip pain. She failed conservative management and elected to undergo left total hip arthroplasty. HOSPITAL COURSE: The patient was admitted to [facility] on . She underwent a left total hip arthroplasty without complication. Postop day 1, she was well-appearing, in no acute distress. Thigh was soft. Dorsiflexion and plantar flexion intact. DP pulse 2+. Capillary refill less than 2 seconds distally. Sensation intact to light touch distally. Hemoglobin 11.4, hematocrit 33, INR was 0.98. Postop day 2, she was well appearing and in no acute distress. Overnight, she did request a normal saline 1 L bag due to history of chronic fatigue syndrome. She follows along with a chronic fatigue syndrome researcher, who recommends a liter of saline on days with blood loss or with diffuse body aches. The patient reports that she feels significantly better after 1 liter infusion. Left hip dressing was changed by Dr. Pressley this morning. Exam is otherwise without any complication. Dorsiflexion and plantar flexion intact. DP pulse 2+. Capillary refill less than 2 seconds distally. Vital signs today, temperature 98.2, pulse 71, respiratory rate 18, blood pressure 129/60, pulse ox 98%. Hemoglobin 11.7, hematocrit 34. INR 1.21. Sodium 138, potassium 4.1. The patient was deemed to be medically and orthopedically stable for discharge home. She met her goals with physical therapy. DISCHARGE MEDICATIONS: 1. Fish oil 1000 mg capsule daily. 2. Discontinue naproxen at home. 3. Turmeric 1000 mg p.o. q.a.m. 4. Multivitamin 1 tab p.o. q.a.m. 5. Magnesium oxide 1 tab p.o. q.a.m. 6. Glucosamine chondroitin 1 tab p.o. q.a.m. 7. Boswellia neftaly extract 1 tab p.o. q.a.m. 8. CBD tincture 7 drops p.o. b.i.d. New medications include: 1. Acetaminophen 650 mg p.o. q.8 hours p.r.n. 2. Docusate 100 mg p.o. b.i.d. p.r.n. 3. Percocet 5/325 one to two tabs every 4 to 6 hours as needed for pain, max daily dose of 10. 4. Warfarin 2 mg tablets 1 to 3 tabs daily, dose depends on INR. DISCHARGE INSTRUCTIONS: The patient will be discharged home. Her discharge disposition is to home. She will be weightbearing as tolerated. She will continue hip precautions, she may shower postop day 3, visiting home nurse will do wound checks as well as blood draws. INR on 07/21/18 was 1.21. Coumadin dosing on 07/21/18 is 8 mg; 07/22/18, 6 mg; 07/23/18 and 07/24/18 is 4 mg each day. 07/25/18, recheck INR for further dosing instructions. Pain control: Percocet 5/325 one to two tabs every 4 to 6 hours as needed for pain, max 10 tabs per day. Follow up with Dr. Pressley in 10 to 14 days. Medications were sent to [facility]. JAIDA WALKER [id number]/[facility] #: [id number] [facility] HOSPITALJanine
== END 2018-07-21 12:30 | disposition home health service (06) | DRG 470 ==
LOC: AA 06:58 → SSU 12:22
PROVIDERS: ADMIT Orthopaedic Surgery Adult Reconstructive Orthopaedic Surgery; ATTEND Orthopaedic Surgery Adult Reconstructive Orthopaedic Surgery
PROC: 0QU507Z Supplement Left Acetabulum with Autologous Tissue Substitute, Open Approach (ICD-10-PCS; 2018-07-19)
PROC: 0SRB04A Replacement of Left Hip Joint with Ceramic on Polyethylene Synthetic Substitute, Uncemented, Open Approach (ICD-10-PCS; principal; 2018-07-19 09:00)
DX: M16.12 Unilateral primary osteoarthritis, left hip (principal); Q65.89 Other specified congenital deformities of hip; M85.68 Other cyst of bone, other site; R53.82 Chronic fatigue, unspecified; Z79.01 Long term (current) use of anticoagulants; Z82.49 Family history of ischemic heart disease and other diseases of the circulatory system; Z83.49 Family history of other endocrine, nutritional and metabolic diseases; Z81.1 Family history of alcohol abuse and dependence; Z83.79 Family history of other diseases of the digestive system; Z72.89 Other problems related to lifestyle; Z80.1 Family history of malignant neoplasm of trachea, bronchus and lung; F41.9 Anxiety disorder, unspecified; M85.88 Other specified disorders of bone density and structure, other site
CPT/HCPCS: 36415; 72170; 80048; 82530; 83735; 85014; 85018; 85049; 85610; 88304; 88311; A9270-GY; G8978-GP-CJ; G8979-GP-CI; G8987-GO-CI; G8987-GO-CJ; G8988-GO-CI; J0690; J1100; J1240; J1650; J1885; J2250; J2405; J2704; J2795; J3010

== ENCOUNTER 2021-10-21 12:13 | Observation (INO) ==
[~2021-10-21 12:13] MED LIST changes: -Buffered Lidocaine 0.9% SYRIN* 5 ML/SYR SYRINGE INTRADERM ONE; +Buffered Lidocaine 1% SYRIN 1 ml INTRADERM ONE; -Famotidine IV* 10 MG/ML 2 ML (20 mg) IV ONE; -Gabapentin CAP(*) 300 MG PO ONE; +Lactated Ringers 1000 ml BAG 1,000 ML IV SCH
[2021-10-21] MEDS ORDERED: ceFAZolin 1 GM ADVAN 1 GM ADDV.VIAL IVPB ONE (12:40)
[2021-10-21] MEDS ORDERED: Bupivacaine 0.5% SDV PF 30ML VIAL ONE (14:42)
[2021-10-21] MEDS ORDERED: fentaNYL 100 mcg/2 ml 50 MCG/ML VIAL ONE ×2 (14:50→15:21)
[2021-10-21] MEDS ORDERED: Midazolam 2 mg/2 ml VIAL 1 mg/ml 2 ml VIAL (2 mg) ONE (14:50)
[2021-10-21] MEDS ORDERED: EPHEDrine (Pressors) 50 MG/ML VIAL ONE (15:34)
[2021-10-21] MEDS ORDERED: Acetaminophen IV 1 GM/100ML 100 ML IV ONE (16:07)
[2021-10-21] MEDS ORDERED: Lidocaine 2% PF 5 ML VIAL ONE (16:07)
[2021-10-21] MEDS ORDERED: Phenylephrine IV 10 MG/ML 1 ml VIAL ONE (16:07)
[2021-10-21] MEDS ORDERED: Ondansetron 4 mg VIAL 2 MG/ML 2 ml VIAL ONE (16:07)
[2021-10-21] MEDS ORDERED: Propofol 10 MG/ML 20 ML BTL ONE ×4 (16:07→17:46)
[2021-10-21] MEDS ORDERED: Magnesium Hydroxide LIQ 30 ML UDC PO PRN (16:33)
[2021-10-21] MEDS ORDERED: Ondansetron 4 mg VIAL 2 MG/ML 2 ml VIAL IV PRN (16:33)
[2021-10-21] MEDS ORDERED: diPHENhydraMINE IV 50 MG/ML 1 ml VIAL (BENADRYL) IV PRN (16:33)
[2021-10-21] MEDS ORDERED: diPHENhydraMINE 25 mg TAB PO PRN (16:33)
[2021-10-21] MEDS ORDERED: Ondansetron ODT 4 mg TAB 4 MG TAB PO PRN (16:33)
[2021-10-21] MEDS ORDERED: Lactulose 30 ml UDC PO PRN (16:33)
[2021-10-21] MEDS ORDERED: Polyethylene Glycol 3350 17 GM PACKET PO PRN (16:45)
[2021-10-21] MEDS ORDERED: Lactated Ringers 1000 ml BAG 1,000 ML IV SCH (17:00)
[2021-10-21] MEDS: Magnesium Hydroxide LIQ 30 ML UDC PO SCH ×2 (20:54→20:55)
[2021-10-22] MEDS: ceFAZolin 1 GM ADVAN 1 GM in NS 0.9% 50 ML 50 ML IVPB SCH ×3 (00:23→15:23)
[2021-10-22 06:18] LABS: Hematocrit 34 % (35-47); Hemoglobin 11.6 g/dL (12.0-16.0); Mean Platelet Volume 8.5 fL (7.4-10.4); Platelet Count 194 10^3/uL (150-450)
[2021-10-22 06:37] LABS: Calcium 8.7 mg/dL (8.6-10.3); Potassium 3.9 mmol/L (3.5-5.0); eGFR CKD-EPI 75.3 (>60)
[2021-10-22] MEDS: Vitamin THERAPEUTIC TAB PO SCH (09:25)
[2021-10-22] MEDS: Magnesium Hydroxide LIQ 30 ML UDC PO SCH ×2 (09:26→20:22)
[2021-10-22] MEDS ORDERED: Polyethylene Glycol 3350 17 GM PACKET PO PRN (11:03)
[2021-10-23 07:12] LABS: Hematocrit 33 % (35-47); Hemoglobin 11.1 g/dL (12.0-16.0); Mean Platelet Volume 8.8 fL (7.4-10.4); Platelet Count 196 10^3/uL (150-450)
[2021-10-23] MEDS: Magnesium Hydroxide LIQ 30 ML UDC PO SCH (07:28)
[2021-10-23 07:53] VITALS: BP 107/55
[2021-10-23] MEDS: Vitamin THERAPEUTIC TAB PO SCH (09:35)
== END 2021-10-23 11:16 | disposition home or self-care (01) ==
LOC: AA 12:13 → INTOOBSV 12:13 → SSU 18:42
PROVIDERS: ADMIT Orthopaedic Surgery Adult Reconstructive Orthopaedic Surgery; ATTEND Orthopaedic Surgery Adult Reconstructive Orthopaedic Surgery